=== PATIENT | female | born 1955 | race Caucasian/White ===

== ENCOUNTER 2017-07-26 15:19 | Observation (INO) | payer SELFPAY ==
[2017-07-26] VITALS (7 sets, daily range): BP systolic 116–195; BP diastolic 63–81; PULSE 61–84; RESP 16–18; TEMP 98.4–99; O2SAT 97–99
[~2017-07-26] VITALS: Ht 149.9 cm; Wt 86.0 kg
[2017-07-26] MEDS ORDERED: ASPIRIN 325 MG TAB PO ONE (16:00)
[2017-07-26] MEDS ORDERED: SODIUM CHLORIDE 0.9% FLUSH 10 ML FLUSH IVF PRN (16:00)
--- NOTE | 2017-07-26 16:15 | RADRPT ---
EXAM DATE/TIME: 07/26/2017 16:11 [place] COMPARISON: No previous studies available for comparison. INDICATIONS : Chest pain and shortness of breath. MEDICAL HISTORY : None. SURGICAL HISTORY : None. ENCOUNTER: Initial ACUITY: 3 days PAIN SCORE: 5/10 LOCATION: Left chest. FINDINGS: A single view of the chest demonstrates the lungs to be symmetrically aerated without evidence of mas s, infiltrate or effusion. The cardiomediastinal contours are unremarkable. Osseous structures are intact. CONCLUSION: Normal examination. Yared Castillo MD on July 26, 2017 at 16:12 Board Certified Radiologist. This report was verified electronically.
[2017-07-26 16:26] LABS: AUTOMATED NEUTROPHIL # 8.1 TH/MM3 (1.8-7.7); BASOPHIL # 0.1 TH/MM3 (0-0.2); BASOPHIL % 0.5 % (0.0-2.0); EOSINOPHIL # 0.1 TH/MM3 (0-0.4); EOSINOPHIL % 0.7 % (0.0-4.0); HEMATOCRIT 35.4 % (35.0-46.0); HEMOGLOBIN 11.9 GM/DL (11.6-15.3); LYMPH % 18.4 % (9.0-44.0); LYMPHOCYTE # 2.1 TH/MM3 (1.0-4.8); MEAN CELL VOLUME 91.8 FL (80.0-100.0); MEAN CORPUSCULAR HEMOGLOBIN 30.9 PG (27.0-34.0); MEAN CORPUSCULAR HGB CONC 33.7 % (32.0-36.0); MEAN PLATELET VOLUME 8.3 FL (7.0-11.0); MONO % 7.9 % (0.0-8.0); MONOCYTE # 0.9 TH/MM3 (0-0.9); NEUT % 72.5 % (16.0-70.0); PLATELET COUNT 291 TH/MM3 (150-450); RED BLOOD COUNT 3.85 MIL/MM3 (4.00-5.30); RED CELL DISTRIBUTION WIDTH 13.5 % (11.6-17.2); WHITE BLOOD COUNT 11.3 TH/MM3 (4.0-11.0)
[2017-07-26 16:38] LABS: PROTHROMBIN TIME - PATIENT 9.8 SEC (9.8-11.6)
[2017-07-26 16:48] LABS: BICARBONATE 28.1 MEQ/L (21.0-32.0); BLOOD UREA NITROGEN 13 MG/DL (7-18); CALCIUM 8.3 MG/DL (8.5-10.1); CHLORIDE 105 MEQ/L (98-107); CREATININE 0.78 MG/DL (0.50-1.00); GLOMERULAR FILTRATION RATE 75 ML/MIN (>89); GLUCOSE,RANDOM 96 MG/DL (74-106); MAGNESIUM 1.8 MG/DL (1.5-2.5); SODIUM (NA) 139 MEQ/L (136-145)
[2017-07-26 16:53] LABS: TROPONIN I LESS THAN 0.02 NG/ML (0.02-0.05)
--- NOTE | 2017-07-26 18:27 | PD ---
HPI Chief Complaint: Chest Pain Time Seen by Provider: 16:00 Travel History International Travel<30 days: No Contact w/Intl Traveler<30days: No Traveled to known affect area: No History of Present Illness HPI 62-year-old female presents emergency department for evaluation of chest pain that started yesterday morning. Patient states she had just woken up when the chest pain started. She became lightheaded dizzy and diaphoretic during the episode. She denies any nausea vomiting. The episode resolved spontaneously. Patient has had multiple episodes of chest pain where she becomes diaphoretic with headed and dizzy with what she describes as midsternal crushing pain that radiates down her left arm and up to her left jaw. Patient states when the pain is present at the 10 out of 10. She denies any medical history and does not take any daily medication. However she states she has an extensive family history of heart disease. Patient states she has been monitoring her blood pressure and has been elevated lately. She is not officially diagnosed with hypertension but she believes she might have it. The patient's son has been diagnosed with hypertension at age 33. There are no relieving or exacerbating factors to the chest pain. It just comes in episodes that the patient cannot predict. She states she has had approximately 5 episodes since yesterday morning when the pain originally started. She denies any fevers, malaise, abdominal pain, nausea, vomiting, diarrhea. PFSH Past Medical History Medical History: Denies Significant Hx LMP: na Past Surgical History Surgical History: No Previous Surgery Social History Alcohol Use: No Tobacco Use: No Substance Use: No Allergies-Medications (Allergen,Severity, Reaction): Coded Allergies: No Known Allergies (Unverified Adverse Reaction, Unknown, 07/26/17) Reported Meds & Prescriptions Reported Meds & Active Scripts Active No Active Prescriptions or Reported Medications Review of Systems Except as stated in HPI: all other systems reviewed are Neg Cardiovascular: Positive: Chest Pain or Discomfort Physical Exam Narrative GENERAL: Well-nourished, well-developed 62-year-old female in no acute distress. Nontoxic appearing. SKIN: Focused skin assessment warm/dry. HEAD: Atraumatic. Normocephalic. EYES: Pupils equal and round. No scleral icterus. No injection or drainage. ENT: No nasal bleeding or discharge. Mucous membranes pink and moist. NECK: Trachea midline. No JVD. CARDIOVASCULAR: Regular rate and rhythm. No murmur appreciated. RESPIRATORY: No accessory muscle use. Clear to auscultation. Breath sounds equal bilaterally. GASTROINTESTINAL: Abdomen soft, non-tender, nondistended. Hepatic and splenic margins not palpable. MUSCULOSKELETAL: No obvious deformities. No clubbing. No cyanosis. No edema. NEUROLOGICAL: Awake and alert. No obvious cranial nerve deficits. Motor grossly within normal limits. Normal speech. PSYCHIATRIC: Appropriate mood and affect; insight and judgment normal. Data Data Last Documented VS Vital Signs Date Time Temp Pulse Resp B/P (MAP) Pulse Ox O2 Delivery O2 Flow Rate FiO2 07/26/17 16:07 99 Room Air 07/26/17 15:28 99.0 84 18 Orders Orders Electrocardiogram (07/26/17 15:57) Basic Metabolic Panel (Bmp) (07/26/17 15:57) Ckmb (Isoenzyme) Profile (07/26/17 15:57) Complete Blood Count With Diff (07/26/17 15:57) Magnesium (Mg) (07/26/17 15:57) Prothrombin Time / Inr (Pt) (07/26/17 15:57) Act Partial Throm Time (Ptt) (07/26/17 15:57) Troponin I (07/26/17 15:57) Chest, Single Ap (07/26/17 15:57) Ecg Monitoring (07/26/17 15:57) Bilateral Bp Monitoring (07/26/17 15:57) Iv Access Insert/Monitor (07/26/17 15:57) Oximetry (07/26/17 15:57) Oxygen Administration (07/26/17 15:57) Aspirin (Aspirin) (07/26/17 16:00) Sodium Chloride 0.9% Flush (Ns Flush) (07/26/17 16:00) Admit Order (Ed Use Only) (07/26/17 18:12) Labs Laboratory Tests Test 07/26/17 16:14 White Blood Count 11.3 TH/MM3 Red Blood Count 3.85 MIL/MM3 Hemoglobin 11.9 GM/DL Hematocrit 35.4 % Mean Corpuscular Volume 91.8 FL Mean Corpuscular Hemoglobin 30.9 PG Mean Corpuscular Hemoglobin Concent 33.7 % Red Cell Distribution Width 13.5 % Platelet Count 291 TH/MM3 Mean Platelet Volume 8.3 FL Neutrophils (%) (Auto) 72.5 % Lymphocytes (%) (Auto) 18.4 % Monocytes (%) (Auto) 7.9 % Eosinophils (%) (Auto) 0.7 % Basophils (%) (Auto) 0.5 % Neutrophils # (Auto) 8.1 TH/MM3 Lymphocytes # (Auto) 2.1 TH/MM3 Monocytes # (Auto) 0.9 TH/MM3 Eosinophils # (Auto) 0.1 TH/MM3 Basophils # (Auto) 0.1 TH/MM3 CBC Comment DIFF FINAL Differential Comment Prothrombin Time 9.8 SEC Prothromb Time International Ratio 1.0 RATIO Activated Partial Thromboplast Time 22.6 SEC Blood Urea Nitrogen 13 MG/DL Creatinine 0.78 MG/DL Random Glucose 96 MG/DL Calcium Level 8.3 MG/DL Magnesium Level 1.8 MG/DL Sodium Level 139 MEQ/L Potassium Level 4.0 MEQ/L Chloride Level 105 MEQ/L Carbon Dioxide Level 28.1 MEQ/L Anion Gap 6 MEQ/L Estimat Glomerular Filtration Rate 75 ML/MIN Total Creatine Kinase 78 U/L Troponin I LESS THAN 0.02 NG/ML [facility] Medical Decision Making Medical Screen Exam Complete: Yes Emergency Medical Condition: Yes Interpretation(s) Hypertensive Differential Diagnosis Differential diagnoses include but not limited to coronary event, pneumonia, muscle strain, electrolyte abnormality, arrhythmia Narrative Course Patient placed on monitor, IV obtained, blood work sent to the lab, CBC, BMP, PT /INR, magnesium, troponin, CK-MB. Chest x-ray ordered and pending. EKG ordered and pending. Patient given 325 mg by mouth aspirin. Blood work shows mild leukocytosis with WBCs 11.3. BMP shows no acute abnormalities with troponin negative. PT/INR shows no acute abnormalities, outside mildly decreased APTT at 22.6. EKG shows sinus rhythm with heart rate 77. Based on patient's symptoms, clinical presentation, lab results, radiological results, vital sign review and physical exam it is advantageous patient is to admit the patient to the chest pain center for further evaluation and a stress test in the a.m. Patient agreeable with plan of care and admitted to the chest pain center at this time. Diagnosis Primary Impression: Chest pain Qualified Codes: R07.9 - Chest pain, unspecified Admitting Information Admitting Physician Requests: Observation Scripts No Active Prescriptions or Reported Meds Dayanna Duobse Jul 26, 2017 18:27
[2017-07-26] MEDS ORDERED: SODIUM CHLORIDE 0.9% FLUSH 10 ML FLUSH IV FLUSH PRN (19:00)
[2017-07-26 20:53] LABS: TROPONIN I LESS THAN 0.02 NG/ML (0.02-0.05)
[2017-07-26] MEDS: SODIUM CHLORIDE 0.9% FLUSH 10 ML FLUSH IV FLUSH SCH (22:24)
[2017-07-26 22:26] LABS: TROPONIN I LESS THAN 0.02 NG/ML (0.02-0.05)
--- NOTE | 2017-07-26 23:20 | EKG ---
Date Performed: 07/26/2017 Time Performed: 20:06:53 PTAGE: 62 years EKG: Sinus rhythm NORMAL ECG PREVIOUS TRACING : 07/26/2017 15.59 Compared to prior tracing no significant change DOCTOR: Sohail Dubose Interpretating Date/Time 07/26/2017 23:19:30
[2017-07-27] VITALS: PULSE 95
[2017-07-27 03:20] VITALS: BP 136/77; PULSE 78; RESP 16; TEMP 98; O2SAT 99
[2017-07-27 04:00] VITALS: PULSE 74
[2017-07-27 07:07] VITALS: O2SAT 98
[2017-07-27 07:38] VITALS: BP 149/70; PULSE 72; RESP 22; TEMP 98.4; O2SAT 99
[2017-07-27 07:39] VITALS: PULSE 69
[2017-07-27] MEDS: SODIUM CHLORIDE 0.9% FLUSH 10 ML FLUSH IV FLUSH SCH (08:31)
--- NOTE | 2017-07-27 08:49 | HHI.HP ---
HPI Primary Care Physician No Primary Care Physician Chief Complaint Chest pain History of Present Illness This is a 62-year-old female with history of hypertension and hyperlipidemia that presents to ED with a clean of chest pain and hypertension. Patient states her last couple days her blood pressure has been high. He took whatever son blood pressure medicines yesterday which did seem to help. Also yesterday she developed a discomfort in the center of her chest. [place] like a sharp and heavy discomfort. Her left arm also felt heavy. It lasted about 5 minutes. Denies shortness breath, nausea, or diaphoresis. Found nothing to bring on the discomfort. Found nothing to worsen or improve it. Denies history of CAD. Cannot recall prior stress testing. Takes no medication for diagnosis of hypertension and hyperlipidemia. Review of Systems General: Patient denies fevers, chills recent, and recent travel HEENT: Patient denies headache, sore throat, difficulty swallowing. Cardiovascular: Has the chest discomfort as mentioned above. Denies sensation of heart beating rapidly or irregularly. No syncope. Denies diaphoresis. Respiratory: Denies shortness of breath or inspirational chest discomfort. Denies coughing wheezing or hemoptysis. GI: Patient denies nausea, vomiting, diarrhea, abdominal pain, bloody stools. Musculoskeletal: Patient denies joint pain or edema. Denies calf pain or edema. Neurovascular: Patient denies numbness, tingling, weakness in extremities. Denies headache. Endocrine: Denies polyuria and polydipsia. Hematologic: Denies easy bruising. Skin: Denies rash or itching. Past Family Social History Allergies: Coded Allergies: No Known Allergies (Unverified Allergy, Unknown, 07/27/17) Past Medical History Hypertension and hyperlipidemia but states she's never been on medication for either. Denies diabetes and known CAD. Nonsmoker. Past Surgical History Noncontributory. Reported Medications Reported Meds & Active Scripts Active No Active Prescriptions or Reported Medications Active Ordered Medications Current Medications Medications (Trade) Dose Ordered Sig/Maty Route Start Time Stop Time Status Last Admin (NS Flush) 2 ml UNSCH PRN IVF 07/26/17 16:00 (NS Flush) 2 ml UNSCH PRN IV FLUSH 07/26/17 19:00 (NS Flush) 2 ml BID IV FLUSH 07/26/17 21:00 07/27/17 08:31 (Prinivil) 10 mg DAILY PO 07/27/17 09:00 07/27/17 08:31 Family History Denies early onset CAD. States her father had an GA at age 91. Social History Nonsmoker. Denies alcohol or illicit drugs. Physical Exam Vital Signs Vital Signs Date Time Temp Pulse Resp B/P (MAP) Pulse Ox O2 Delivery O2 Flow Rate FiO2 07/27/17 07:39 69 07/27/17 07:38 98.4 72 22 149/70 (96) 99 07/27/17 07:07 98 21 07/27/17 04:00 74 07/27/17 03:20 98.0 78 16 136/77 (96) 99 07/27/17 00:00 95 07/26/17 23:13 98.5 84 16 150/63 (92) 99 07/26/17 22:17 21 07/26/17 20:45 76 07/26/17 20:30 98.4 79 16 116/72 (87) 99 07/26/17 20:20 07/26/17 20:12 61 16 164/77 (106) 97 Room Air 07/26/17 16:07 99 Room Air 07/26/17 16:07 165/74 (104) 07/26/17 16:07 99 Room Air 07/26/17 16:06 161/70 (100) 07/26/17 15:28 99.0 84 18 195/81 (119) 99 Room Air Physical Exam GENERAL: This is a well-nourished, well-developed patient, in no apparent distress. Patient speaks in clear complete sentences. Patient is pleasant. HEENT: Head is atraumatic and normocephalic. Neck is supple without lymphadenopathy and trachea is midline. No JVD or carotid bruits. CARDIOVASCULAR: Regular rate and rhythm without murmurs, gallops, or rubs. RESPIRATORY: Clear to auscultation. Breath sounds equal bilaterally. No wheezes , rales, or rhonchi. Chest wall is nontender. No use of accessory muscles. GASTROINTESTINAL: Abdomen is nontender, nondistended. Abdomen soft. No obvious pulsatile mass or bruit. No CVA tenderness. Strong femoral pulses bilaterally. Normal bowel sounds in all quadrants. MUSCULOSKELETAL: Patient is moving upper and lower extremities freely. No calf tenderness or edema, no Homans sign. Strong pulses in upper and lower extremities. NEUROLOGICAL: Patient is alert and oriented. Cranial nerves 2-12 are grossly intact. No focal deficits and speech is clear. SKIN: No rash and turgor is normal. Laboratory Laboratory Tests Test 07/26/17 16:14 07/26/17 20:05 07/26/17 21:53 White Blood Count 11.3 Red Blood Count 3.85 Hemoglobin 11.9 Hematocrit 35.4 Mean Corpuscular Volume 91.8 Mean Corpuscular Hemoglobin 30.9 Mean Corpuscular Hemoglobin Concent 33.7 Red Cell Distribution Width 13.5 Platelet Count 291 Mean Platelet Volume 8.3 Neutrophils (%) (Auto) 72.5 Lymphocytes (%) (Auto) 18.4 Monocytes (%) (Auto) 7.9 Eosinophils (%) (Auto) 0.7 Basophils (%) (Auto) 0.5 Neutrophils # (Auto) 8.1 Lymphocytes # (Auto) 2.1 Monocytes # (Auto) 0.9 Eosinophils # (Auto) 0.1 Basophils # (Auto) 0.1 CBC Comment DIFF FINAL Differential Comment Prothrombin Time 9.8 Prothromb Time International Ratio 1.0 Activated Partial Thromboplast Time 22.6 Blood Urea Nitrogen 13 Creatinine 0.78 Random Glucose 96 Calcium Level 8.3 Magnesium Level 1.8 Sodium Level 139 Potassium Level 4.0 Chloride Level 105 Carbon Dioxide Level 28.1 Anion Gap 6 Estimat Glomerular Filtration Rate 75 Total Creatine Kinase 78 69 69 Troponin I LESS THAN 0.02 LESS THAN 0.02 LESS THAN 0.02 Result Diagram: 07/26/17 1614 07/26/17 1614 Imaging Last 48 hours Impressions Chest X-Ray 07/26/17 1557 Signed Impressions: Service Date/Time: July 16:11 - CONCLUSION: Normal examination. Yared Castillo MD Course EKGs are sinus rhythm without significant ST segment depressions or elevations. Caprini VTE Risk Assessment Caprini VTE Risk Assessment: No/Low Risk (score <= 1) Caprini Risk Assessment Model Point Value = 1 Point Value = 2 Point Value = 3 Point Value = 5 Age 41-60 Minor surgery BMI > 25 kg/m2 Swollen legs Varicose veins or History of unexplained or recurrent spontaneous Oral contraceptives or hormone replacement Sepsis (< 1 month) Serious lung disease, including pneumonia (< 1 month) Abnormal pulmonary function Acute myocardial infarction Congestive heart failure (< 1 month) History of inflammatory bowel disease Medical patient at bed rest Age 61-74 Arthroscopic surgery Major open surgery (> 45 min) Laparoscopic surgery (> 45 min) Malignancy Confined to bed (> 72 hours) Immobilizing plaster cast Central venous access Age >= 75 History of VTE Family history of VTE Factor V Leiden Prothrombin [id number] Lupus anticoagulant Anticardiolipin antibodies Elevated serum homocysteine Heparin-induced thrombocytopenia Other congenital or acquired thrombophilia Stroke (< 1 month) Elective arthroplasty Hip, pelvis, or leg fracture Acute spinal cord injury (< 1 month) Prophylaxis Regimen Total Risk Factor Score Risk Level Prophylaxis Regimen 0-1 Low Early ambulation 2 Moderate Order ONE of the following: *Sequential Compression Device (SCD) *Heparin 5000 units SQ BID 3-4 Higher Order ONE of the following medications: *Heparin 5000 units SQ TID *Enoxaparin/Lovenox 40 mg SQ daily (WT < 150 kg, CrCl > 30 mL/min) *Enoxaparin/Lovenox 30 mg SQ daily (WT < 150 kg, CrCl > 10-29 mL/min) *Enoxaparin/Lovenox 30 mg SQ BID (WT < 150 kg, CrCl > 30 mL/min) AND/OR *Sequential Compression Device (SCD) 5 or more Highest Order ONE of the following medications: *Heparin 5000 units SQ TID (Preferred with Epidurals) *Enoxaparin/Lovenox 40 mg SQ daily (WT < 150 kg, CrCl > 30 mL/min) *Enoxaparin/Lovenox 30 mg SQ daily (WT < 150 kg, CrCl > 10-29 mL/min) *Enoxaparin/Lovenox 30 mg SQ BID (WT < 150 kg, CrCl > 30 mL/min) AND *Sequential Compression Device (SCD) Assessment and Plan Assessment and Plan * Chest pain: Patient has had serial cardiac enzymes and EKGs for ruling out purposes. She was seen by Dr. Ever Collazo of cardiology in the chest pain center and will undergo a Topher protocol ETT. She'll be discharged home if her stress test is nonischemic with instructions to follow-up with PCP. Return to ED for interval issues. * Hypertension: We'll start lisinopril. * Hyperlipidemia: Patient is discussed with PCP. Patient is stable at this time. She is agreeable to this plan. Yossi Whelan Jul 27, 2017 08:49
[2017-07-27] MEDS ORDERED: LISINOPRIL 10 MG TAB PO SCH (09:00)
[2017-07-27] MEDS ORDERED: LISI10TA3 PO (10:03)
--- NOTE | 2017-07-27 10:03 | HHI.DCPOC ---
Discharge Care Plan Diagnosis: (1) Chest pain (2) Hypertension (3) Hyperlipidemia Goals to Promote Your Health * To prevent worsening of your condition and complications * To maintain your health at the optimal level Directions to Meet Your Goals Take your medications as prescribed Follow your dietary instruction Follow activity as directed Keep your appointments as scheduled Take your immunizations and boosters as scheduled If your symptoms worsen call your PCP, if no PCP go to Urgent Care Center or Emergency Room Smoking is Dangerous to Your Health. Avoid second hand smoke Call the 24-hour hour crisis hotline for domestic abuse at Yossi Whelan Jul 27, 2017 10:03
--- NOTE | 2017-07-27 14:21 | EKG ---
Date Performed: 07/26/2017 Time Performed: 21:37:39 PTAGE: 62 years EKG: Sinus rhythm NORMAL ECG PREVIOUS TRACING : 07/26/2017 21.36 Since previous tracing, no significant change noted DOCTOR: Ever Collazo Interpretating Date/Time 07/27/2017 14:19:40
--- NOTE | 2017-07-27 14:22 | EKG ---
Date Performed: 07/26/2017 Time Performed: 15:59:27 PTAGE: 62 years EKG: Sinus rhythm NORMAL ECG NO PREVIOUS TRACING DOCTOR: Ever Collazo Interpretating Date/Time 07/27/2017 14:21:02
--- NOTE | 2017-07-27 14:25 | TR ---
Date Performed: 07/27/2017 Time Performed: 09:36:03 DOCTOR: Ever Collazo DRUG LIST: CLINICAL HISTORY: CHEST PAIN REASON FOR TEST: REASON FOR ENDING: OBSERVATION: CONCLUSION: SUDARSHAN PROTOCOL. NO CP. TEST STOPPED AFTER EXCEEDING GOAL HR SECONDARY TO SOB AND LEG FATIGUE.Maximum YB=669 % Max HR Achieved=94.0% Maximum KT=864/78 Total Exercise Time=6:00 COMMENTS: Patient exercised using the Sudarshan protocol. No electrocardiographic changes were seen to suggest ischemia. Hemodynamic response to exercise was normal. No significant arrhythmia was prese nt.
== END 2017-07-27 11:47 | disposition home or self-care (01) ==
LOC: NEPC 15:19 → NEDA 18:15 → NEPFCDU 20:18
DX: R07.9 Chest pain, unspecified (principal); R06.02 Shortness of breath; D72.829 Elevated white blood cell count, unspecified; R42 Dizziness and giddiness; R61 Generalized hyperhidrosis; I10 Essential (primary) hypertension; E78.5 Hyperlipidemia, unspecified; Z82.49 Family history of ischemic heart disease and other diseases of the circulatory system
CPT/HCPCS: 71010; 80048; 82550; 83735; 84484; 85025; 85610; 85730; 93005; 93017; 99285; G0378